=== PATIENT | male | born 1955 | race Asian ===

== ENCOUNTER 2023-10-08 12:36 | Observation (INO) ==
--- NOTE | 2023-10-08 13:09 | Emergency Department Note ---
Impression & Plan Microcytic anemia, FORRESTER (dyspnea on exertion) ED Provider Note Provider: Bryan Bailey MD DATE OF SERVICE: 10/08/2023 CHIEF COMPLAINT: Referred anemia HISTORY OF PRESENT ILLNESS: Patient is a 68-year-old gentleman referred here today by his PCP due to anemia. Hemoglobin reported to be 6.6. Patient reports over the past 6 months been having increased fatigue and shortness of breath. No bleeding or black or bloody stools reported. Denies any significant trauma or nosebleeds. Denies significant chest pain. Not on anticoagulants. Denies GI upset or heartburn. Last weeks at least no noted some increased dyspnea on exertion but no chest pain. Denies any recent bleeding but does report in the past has had a little bit of blood in the stool in the past. Did previously receive iron infusions a year or 2 ago. Had previous GI workup in the last several years including EGD and colonoscopy without findings. 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 NECK: Trachea midline. ENT: Mucous membranes pink and moist. LUNGS: Airway patent. No retractions or tachypnea. HEART: Regular rate and rhythm. No chest wall tenderness ABDOMEN: Soft and non-tender, without guarding or rebound. SKIN: Acyanotic, warm, dry, without rashes EXTREMITIES: Without swelling, tenderness or deformity NEUROLOGICAL: No focal deficits. No aphasia. No facial droop or slurred speech. Ambulatory. EK beats. Normal sinus rhythm. No PVC or PAC. No acute ST segment elevation or depression QTc 435. CONTINUOUS CARDIAC MONITORING: was ordered and showed a heart rate of 70s-80s bpm in normal sinus Patient's laboratory studies and imaging reviewed. Differential includes Infection, dehydration, metabolic abnormality, hypo/hyperglycemia, electrolyte disturbance, anemia, hypoxia, cardiac sources, intracerebral event, toxicologic, neurologic, as well as other pathologies. IMPRESSION/MEDICAL DECISION MAKING: Patient referred due to reportedly hemoglobin 6.6 in outpatient setting. This was double checked here. Type and screen sent. EKG obtained and troponin sent. Seems a bit more chronic. Dyspnea on exertion but no dyspnea at rest. Not hypoxic. Thyroid testing was sent. Iron panel and B12 sent. Hemoglobin confirmed to be low. Mild leukopenia noted. Normal platelet count. No significant BUN elevation and normal creatinine electrolytes and doubt significant upper GI bleed. Denies any lower GI bleeding at this time. Seemingly more chronic. Transferrin quite low. Vitamin B12 is also low although anemia appears microcytic. A unit of packed red blood cells was ordered and he was consented at bedside. Do not feel any additional imaging at this time. Chest x-ray is reassuring on my review.. Discussion with him he is agreeable to stay overnight for further observation. Discussed with the hospitalist team. DIAGNOSIS: Microcytic anemia, iron deficiency, dyspnea on exertion DISPOSITION: Hospitalist will evaluate Patient was agreeable with this plan. Critical Care I have personally spent 31 minutes of critical care time in the direct management of this patient. This includes bedside care, interpretation of diagnostic studies, and testing, discussion with consultants, patient, and family members, and other required patient management activities. These 31 minutes is in excess of all separately billable procedures. Past Med/Surg History Medical History (Updated 10/08/23 @ 15:30 by Rakesh Woodall MD) Essential (primary) hypertension Social History Smoking Status: Never smoker Second Hand Exposure: Yes (father smoked); Hx Alcohol Use: Yes (occ'l beer) Alcohol type: beer Hx Substance Use: No Preferred Language: Romanian Communication Ability: Effective Visual Impairment: No Limitations Hearing Ability: Normal Slitter Operator Required: No Beliefs That Will Affect Care: None marital status: Current Living Situation: Spouse current occupational status: retired Feels Safe at Home: Yes Childhood Exposure to Second-Hand Smoke: Yes Diet: regular Dental Care, Regularly: Yes Physical Activity Frequency: Daily Seatbelt Use: always Sunscreen Use: Yes Do you think of yourself as: straight/heterosexual Gender Identity: Male Assistive Devices: None Allergies Allergies Allergy/AdvReac Type Severity Reaction Status Date / Time No Known Allergies Allergy Verified 10/08/23 15:25 Home Meds Home Medications Medication Instructions Recorded Confirmed No Known Home Medications 10/08/23 10/08/23 Results & Data (ED) Vital Signs Vital Signs - 24 hr 10/08/23 12:45 10/08/23 14:22 10/08/23 14:38 Temperature 36.7 C Temperature Source Skin Pulse Rate 90 79 Pulse Rate [Apical] 72 Respiratory Rate 18 20 Blood Pressure 123/71 Blood Pressure [Left Arm] 151/82 H Blood Pressure Mean 88 Blood Pressure Mean [Left Arm] 105 Pulse Oximetry 100 99 Oxygen Delivery Method Room Air Room Air Sepsis Recent Fever Within 48 Hours No Sepsis New/Unexplained Change in Mental Status No Sepsis Action Taken by Nursing No Action Required 10/08/23 15:00 Temperature Temperature Source Pulse Rate 73 Pulse Rate [Apical] Respiratory Rate 16 Blood Pressure 149/80 H Blood Pressure [Left Arm] Blood Pressure Mean 103 Blood Pressure Mean [Left Arm] Pulse Oximetry 98 Oxygen Delivery Method Room Air Sepsis Recent Fever Within 48 Hours Sepsis New/Unexplained Change in Mental Status Sepsis Action Taken by Nursing Laboratory Data 10/08/23 12:57 10/08/23 12:57 Lab Results 10/08/23 10/08/23 10/08/23 Range/Units 12:55 12:57 13:08 WBC 3.39 L (4.8-10.8) K/ul RBC 3.83 L (4.70-6.10) M/uL Hgb 6.7 L* (14.0-18.0) g/dl POC Hgb 8.5 L (14.0-18.0) g/dl Hct 25.2 L (42.0-52.0) % POC Hct 25 L (42-52) % MCV 65.8 L (80.0-100.0) fL MCH 17.5 L (25.0-34.0) pg MCHC 26.6 L (32.0-36.0) g/dL RDW Std Deviation 45.8 (36.4-46.3) fL RDW Coeff of Hunter 19.8 H (11.5-14.5) % Plt Count 235 (130-400) K/uL MPV 10.6 (9.4-12.4) fL Immature Gran % (Auto) 0.0 % Neut % (Auto) 68.1 % Lymph % (Auto) 20.1 % Tucker % (Auto) 8.0 % Eos % (Auto) 2.9 % Baso % (Auto) 0.9 % Neut # (Auto) 2.31 (1.40-6.50) K/uL Lymph # (Auto) 0.68 L (1.20-3.40) K/uL Tucker # (Auto) 0.27 (0.11-0.59) K/uL Eos # (Auto) 0.10 (0.00-0.50) K/uL Baso # (Auto) 0.03 (0.00-0.20) K/uL Immature Gran # (Auto) 0.00 L (0.01-0.20) K/uL Polychromasia 1+ Hypochromasia Present Anisocytosis Present Microcytosis Present Tear Drop Cells 1+ Ovalocytes 1+ PT 11.4 (9.0-12.0) Seconds INR 1.0 (0.9-1.1) APTT 30 (21-31) Seconds PTT Ratio 1.1 POC Sodium 140 (135-144) mmol/L Sodium 138 (136-145) mmol/L POC Potassium 4.2 (3.3-5.0) mmol/L Potassium 4.2 (3.5-5.1) mmol/L POC Chloride 104 (101-112) mmol/L Chloride 106 (98-107) mmol/L Carbon Dioxide 26 (21-32) mmol/L POC Total CO2 24 (24-31) mmol/L Anion Gap 6 (3-11) POC Anion Gap 17.0 (16-25) mmol/L POC BUN 20 H (7-18) mg/dl BUN 22 (6-23) mg/dl Creatinine 0.59 L (0.6-1.4) mg/dl POC Creatinine 0.6 (0.6-1.3) mg/dl Est Cr Clr Drug Dosing 98.5 ml/min Est GFR ( Amer) 120.6 ml/min Est GFR (Non-Af Amer) 104.0 ml/min BUN/Creatinine Ratio 37.3 H (10-20) Glucose 125 H (70-99(Fasting)) mg/dl POC Glucose (other) 124 H (70-99) mg/dl Calcium 9.4 (8.6-10.3) mg/dl POC Ioniz Calcium Mino 1.26 (1.12-1.32) mmol/l Iron 13 L (35-175) mcg/dl TIBC 459 H (250-450) mcg/dl Unsaturated IBC 446 H (155-355) mcg/dl Transferrin % Sat 3 L (20-50) % Ferritin Cancelled Total Bilirubin 0.5 (0.2-1.0) mg/dl AST 13 (13-39) U/L ALT 11 (7-52) U/L Alkaline Phosphatase 91 (34-104) U/L Troponin I High Sens < 2.3 (0-20) pg/ml Total Protein 7.4 (6.0-8.3) gm/dl Albumin 4.5 (3.4-5.0) gm/dl Globulin 2.9 (2.5-4.0) gm/dl Albumin/Globulin Ratio 1.6 (0.9-2) Vitamin B12 < 50 L (180-914) pg/ml TSH 1.520 (0.300-4.500) uIu/ml Blood Type O Positive Blood Type Recheck Antibody Screen NEGATIVE 10/08/23 Range/Units 14:24 WBC (4.8-10.8) K/ul RBC (4.70-6.10) M/uL Hgb (14.0-18.0) g/dl POC Hgb (14.0-18.0) g/dl Hct (42.0-52.0) % POC Hct (42-52) % MCV (80.0-100.0) fL MCH (25.0-34.0) pg MCHC (32.0-36.0) g/dL RDW Std Deviation (36.4-46.3) fL RDW Coeff of Hunter (11.5-14.5) % Plt Count (130-400) K/uL MPV (9.4-12.4) fL Immature Gran % (Auto) % Neut % (Auto) % Lymph % (Auto) % Tucker % (Auto) % Eos % (Auto) % Baso % (Auto) % Neut # (Auto) (1.40-6.50) K/uL Lymph # (Auto) (1.20-3.40) K/uL Tucker # (Auto) (0.11-0.59) K/uL Eos # (Auto) (0.00-0.50) K/uL Baso # (Auto) (0.00-0.20) K/uL Immature Gran # (Auto) (0.01-0.20) K/uL Polychromasia Hypochromasia Anisocytosis Microcytosis Tear Drop Cells Ovalocytes PT (9.0-12.0) Seconds INR (0.9-1.1) APTT (21-31) Seconds PTT Ratio POC Sodium (135-144) mmol/L Sodium (136-145) mmol/L POC Potassium (3.3-5.0) mmol/L Potassium (3.5-5.1) mmol/L POC Chloride (101-112) mmol/L Chloride (98-107) mmol/L Carbon Dioxide (21-32) mmol/L POC Total CO2 (24-31) mmol/L Anion Gap (3-11) POC Anion Gap (16-25) mmol/L POC BUN (7-18) mg/dl BUN (6-23) mg/dl Creatinine (0.6-1.4) mg/dl POC Creatinine (0.6-1.3) mg/dl Est Cr Clr Drug Dosing ml/min Est GFR ( Amer) ml/min Est GFR (Non-Af Amer) ml/min BUN/Creatinine Ratio (10-20) Glucose (70-99(Fasting)) mg/dl POC Glucose (other) (70-99) mg/dl Calcium (8.6-10.3) mg/dl POC Ioniz Calcium Mino (1.12-1.32) mmol/l Iron (35-175) mcg/dl TIBC (250-450) mcg/dl Unsaturated IBC (155-355) mcg/dl Transferrin % Sat (20-50) % Ferritin Total Bilirubin (0.2-1.0) mg/dl AST (13-39) U/L ALT (7-52) U/L Alkaline Phosphatase (34-104) U/L Troponin I High Sens (0-20) pg/ml Total Protein (6.0-8.3) gm/dl Albumin (3.4-5.0) gm/dl Globulin (2.5-4.0) gm/dl Albumin/Globulin Ratio (0.9-2) Vitamin B12 (180-914) pg/ml TSH (0.300-4.500) uIu/ml Blood Type Blood Type Recheck O Positive Antibody Screen Imaging Data Radiologist's Impression: Chest X-Ray 10/08/23 13:34 XR chest 1V not portable CLINICAL HISTORY: sob, anemia TECHNIQUE: Single frontal radiograph of the chest was obtained. Comparison: Comparison is made to chest radiograph 10/07/2023 FINDINGS: No lines and tubes are seen. The cardiomediastinal silhouette is normal. The lungs are clear. A few calcified granulomata are seen. No evidence of pleural effusion or pneumothorax. IMPRESSION: No acute abnormalities and in particular no radiographic evidence of pneumonia. ACT 112: Negative or not required by law. Electronically signed by: Amor Choudhary M.D. 10/08/2023 2:18 PM Discharge Plan Visit Data Chief Complaint: Referred by Doctor Stated Complaint: REF BY DR HOLMAN ED Provider: Bryan Bailey Discharge Problem: Microcytic anemia, FORRESTER (dyspnea on exertion) Patient Disposition: Being Evaluated by Hospitalist Forms Stand Alone Forms: My Payment plugin Prescriptions Prescriptions: No Action No Known Home Medications Referrals Referrals: PCP,NO [Physician] -
[2023-10-08 13:22] LABS: Mean Corpuscular Hemoglobin 17.5 pg (25.0-34.0); Mean Corpuscular Hgb Conc 26.6 g/dL (32.0-36.0); Mean Corpuscular Volume 65.8 fL (80.0-100.0); Mean Platelet Volume 10.6 fL (9.4-12.4); Platelet Count 235 K/uL (130-400); RDW Coefficient of Variation 19.8 % (11.5-14.5); RDW Standard Deviation 45.8 fL (36.4-46.3); Red Blood Count 3.83 M/uL (4.70-6.10); White Blood Count 3.39 K/ul (4.8-10.8)
[2023-10-08 13:22] LABS: iSTAT Creatinine 0.6 mg/dl (0.6-1.3); iSTAT Hemoglobin 8.5 g/dl (14.0-18.0); iSTAT Ionized Calcium 1.26 mmol/l (1.12-1.32); iSTAT Potassium 4.2 mmol/L (3.3-5.0)
[2023-10-08 13:26] LABS: Albumin Level 4.5 gm/dl (3.4-5.0); Anion Gap 6 (3-11); Bilirubin,Total 0.5 mg/dl (0.2-1.0); Calcium 9.4 mg/dl (8.6-10.3); Carbon Dioxide 26 mmol/L (21-32); Chloride 106 mmol/L (98-107); Potassium 4.2 mmol/L (3.5-5.1); Sodium 138 mmol/L (136-145)
[2023-10-08 13:30] LABS: Partial Thromboplastin Ratio 1.1; Partial Thromboplastin Time 30 Seconds (21-31); Prothrombin Time 11.4 Seconds (9.0-12.0)
[2023-10-08 13:32] LABS: Alanine Aminotransferase 11 U/L (7-52); Albumin Globulin Ratio 1.6 (0.9-2); Alkaline Phosphatase 91 U/L (34-104); Aspartate Aminotransferase 13 U/L (13-39); BUN Creatinine Ratio 37.3 (10-20); Blood Urea Nitrogen 22 mg/dl (6-23); Creatinine Clr Calc Pharmacy 98.5 ml/min; Est GFR (African American) 120.6 ml/min; Globulin 2.9 gm/dl (2.5-4.0); Glucose 125 mg/dl (70-99(Fasting)); Hematocrit (blood only) 25.2 % (42.0-52.0); Hemoglobin 6.7 g/dl (14.0-18.0); Total Protein 7.4 gm/dl (6.0-8.3)
[2023-10-08 13:39] LABS: Anisocytosis Present; Basophils # (auto) 0.03 K/uL (0.00-0.20); Basophils % (auto) 0.9 %; Eosinophils % (auto) 2.9 %; Hypochromasia Present; Lymphocytes # (auto) 0.68 K/uL (1.20-3.40); Lymphocytes % (auto) 20.1 %; Microcytosis Present; Monocytes # (auto) 0.27 K/uL (0.11-0.59); Neutrophils # (auto) 2.31 K/uL (1.40-6.50); Neutrophils % (auto) 68.1 %; Ovalocytes 1+; Polychromasia 1+; Tear Drop Cells 1+
[2023-10-08 13:51] LABS: Iron 13 mcg/dl (35-175); Total Iron Binding Cap Calc 459 mcg/dl (250-450); Transferrin (FE) Percent Satur 3 % (20-50); Unsaturated Iron Binding Cap 446 mcg/dl (155-355)
[2023-10-08 13:56] LABS: Troponin I High Sensitivity < 2.3 pg/ml (0-20)
--- NOTE | 2023-10-08 14:20 | XRay Report ---
XR chest 1V not portable CLINICAL HISTORY: sob, anemia TECHNIQUE: Single frontal radiograph of the chest was obtained. Comparison: Comparison is made to chest radiograph 10/07/2023 FINDINGS: No lines and tubes are seen. The cardiomediastinal silhouette is normal. The lungs are clear. A few c alcified granulomata are seen. No evidence of pleural effusion or pneumothorax. IMPRESSION: No acute abnormalities and in particular no radiographic evidence of pneumonia. ACT 112: Negative or not required by law. Electronically signed by: Amor Choudhary M.D. 10/08/2023 2:18 PM
[2023-10-08] MEDS ORDERED: SODIUM CHLORIDE 0.9% 250 ML IV PRN ×3 (14:43→18:03)
--- NOTE | 2023-10-08 14:59 | History & Physical Report ---
Date of Service October 08, 2023 Assessment & Plan (1) Microcytic anemia: Plan: Chronic iron deficiency anemia, B12 deficiency Hemoglobin 6.4 on admission, with exertional dyspnea and without chest pain or evidence of endorgan ischemia at time of admission. He has had intermittent 3/10 exertional chest pain twice in the past year with the last episode 1 month ago resolved quickly with rest Patient is minimally symptomatic, and asymptomatic at rest with no tac hycardia. Suggestive of chronicity without acute large-volume bleed. He has no epigastric pain and BUN is normal, do not suspect upper GI bleed Does not take oral iron, has had iron infusions in the past - Colonoscopy with hx of hemorrhoids, pt reports has had an egd with no ulcers Type and cross, transfuse 1 unit and recheck H&H then trend Iron levels on admission indicate severe iron deficiency with iron of 13, transferrin saturation of 3%, UIBC of 446. Ferritin is pending. as long as no additional blood transfusions are required overnight, start Venofer therapy 10/09. 300 mg daily x 3 days Patient is also with depleted B12, undetectable by assay. Will treat with 1000 mcg IM once daily for 1 week, then continue 1000 mcg weekly for 8 weeks, and then monthly thereafter. He reports that he has a broad diet and eats well without restriction, gets a mix of meats/rice/breads/vegetables overall. Given good diet overall but completely undetectable B12 levels and only history of oral supplementation, will add anti-intrinsic factor send out to evaluate for pernicious anemia. If positive he will need ongoing IM supplementation or may trial supratherapeutic p.o. doses. Folate level pending, continue daily supplementation (2) Essential (primary) hypertension: Plan: Hypertension Patient has not filled his antihypertensives in some time, reports his blood pressure is usually adequately controlled at home. BP is mildly elevated 149/80 with no stroke symptoms and no history of kidney disease, heart disease, or CVA. Will defer antihypertensive initiation at time of admission; if blood pressure does continue to rise may restart amlodipine 5 mg daily (3) FORRESTER (dyspnea on exertion): Plan: Due to anemia. No ongoing chest pain, troponin is normal, no signs of ACS. CXR is clear, do not suspect infectious etiology (4) Hematochezia: Plan: hx of chronic small-volume hematochezia with hemorrhoids and rectal stenosis no known colorectal cancer and no history of GERD/ulcers. BUN is not elevated and no epigastric tenderness is present, do not suspect upper GI bleed - Patient has seen [facility] last visit was March 2023. Noted to have hemorrhoids, poor prep. Patient was reprepped and this was attempted to be repeated however again with poor visualization. Patient was frustrated by double hospital bills and had not yet followed up for a 1 year repeat. Reviewed with patient, he is agreeable to having a potentially extended prep and rescope as outpatient, can follow-up with [facility] [place] [facility] as outpatient. He reports all GI bleeding has been very small amounts, always bright red, and never melanic or dark red and never in a large volume. While in AVM has not been excluded and patient declined capsule endoscopy as outpatient, low suspicion for this based on clinical presentation (5) B12 deficiency: Plan DVT prophylaxis: SCDs, pharmacal prophylaxis deferred due to hematochezia CODE STATUS: Full code Diet: Regular Disposition: Medical/telemetry for acute anemia pending stability, may downgrade to medical surgical if hemoglobin appropriately rises and hemodynamics remain normal History of Present Illness Primary Care Provider: Emma Lofton Mr. Medel presents with progressive exercise intolerance and fatigue requiring him to take frequent rests when shoveling snow and he was referred for low hemoglobin levels as an outpatient. He reports that he has had progressive fatigue and needs to take more breaks in the last month when she will flinch now and exercising. He reports that shortness of breath resolves with rest, but the episodes are becoming more frequent with less exertion. Initially denies chest pain, then reports he did have a feeling of chest tightness with exertion 1 or 2 times but that would not call this pain and resolved quickly with rest. No chest pain or chest pressure at rest and not on admission. Reports he does have a history of anemia. Was on B12 supplements in the past. Was on treatment 1 year ago with IV iron and B12. Did not take oral iron. Took PO b12 only. Is not sure if his levels ever improved. Has noted recieved B12 IM before. Diet: 'I eat everything. Dont restrict anything. Eats meat, rice, bread.' No FHx of colorectal rectal. Had a colonoscopy last year for hemorrhoids, was noted to have hemorrhoids and anal stenosis. Reports he is pending a followup colonoscopy in 1-3 years, then every 3-5 years after. Denies polyps. No melena. Had an upper endoscopy which was reporedly normal. Was offered a pill endoscopy, but never had much help with bleeding and didn't feel anythign was helping so declined this at the time. No history of melena. NO other medical problems No heart disease No diabetes Retired, does a lot of physical work and tolerates well just needs very frequent breaks and rest in the last few weeks which was worse shoveling snow this month. Reports his blood pressure is adequately controlled, is not taking any home medications or antihypertensives at this Medical History: Reviewed Medications: Reviewed Surgical History: Reviewed Family history: Reviewed Allergies: Reviewed Social History: No tobacco, rare social ETOH Code Status: Full code Allergies Allergy/AdvReac Type Severity Reaction Status Date / Time No Known Allergies Allergy Verified 10/08/23 15:25 Home Medications Medication Instructions Recorded Confirmed Type No Known Home Medications 10/08/23 10/08/23 History Past Med/Surg History Medical History (Updated 10/08/23 @ 15:41 by Rakesh Woodall MD) B12 deficiency Microcytic anemia Essential (primary) hypertension Social History Smoking Status: Never smoker Second Hand Exposure: Yes (father smoked); Hx Alcohol Use: Yes (occ'l beer) Alcohol type: beer Hx Substance Use: No Preferred Language: Hebrew Communication Ability: Effective Visual Impairment: No Limitations Hearing Ability: Normal Retirement Consultant Required: No Beliefs That Will Affect Care: None marital status: Current Living Situation: Spouse current occupational status: retired Feels Safe at Home: Yes Childhood Exposure to Second-Hand Smoke: Yes Diet: regular Dental Care, Regularly: Yes Physical Activity Frequency: Daily Seatbelt Use: always Sunscreen Use: Yes Do you think of yourself as: straight/heterosexual Gender Identity: Male Assistive Devices: None Physical Exam Physical Exam: General: A&Ox3. NAD. Cooperative. HEENT: Atraumatic, normocephalic. Vision/hearing intact. Slight pallor Pulm: CTAB A&P. -wheezes, -rales, -rhonchi. Symmetrical chest rise. No increased work of breathing. No respiratory distress. Cardiac: RRR, -mrg. Radial pulses intact and symmetrical. Abdominal: Nontender, nondistended, soft. BS present. Results & Data Results & Data Vital Signs (Past 12 Hours) Vital Signs Temp Pulse Pulse Resp BP BP Pulse Ox 10/08/23 14:38 79 10/08/23 14:22 72 20 151/82 H 99 10/08/23 12:45 36.7 C 90 18 123/71 100 O2 Del Method 10/08/23 14:38 10/08/23 14:22 Room Air 10/08/23 12:45 Room Air PG Care Time/CCT Total # of Minutes Spent Total Time Spent with Patient: Total time spent is greater than 50% in coordination of care (as documented) at patient's floor/unit and/or counseling patient: Coding Level of Care Code 66328 INT INP/OBS CARE 3/75MIN Diagnoses Microcytic anemia D50.9 Essential (primary) hypertension I10 FORRESTER (dyspnea on exertion) R06.09 Hematochezia K92.1 B12 deficiency E53.8
[2023-10-08] MEDS ORDERED: ACETAMINOPHEN 325 MG TAB PO PRN (17:23)
[2023-10-09 00:20] LABS: Hemoglobin 6.6 g/dl (14.0-18.0)
[2023-10-09] MEDS ORDERED: SODIUM CHLORIDE 0.9% 250 ML IV PRN (00:52)
--- NOTE | 2023-10-09 00:53 | Communication Note ---
Date of Service: October 09, 2023 Pt's H&H 1 hr post 1 unit transfusion was 6.6. Pt remained relatively asymptomatic. VS stable. No signs of bleeding. 1 unit pRBCs ordered d/t Hgb <7.
--- NOTE | 2023-10-09 07:21 | Hospitalist Progress Note ---
Date of Service October 09, 2023 Assessment & Plan (1) Microcytic anemia: Plan: Chronic iron deficiency anemia, B12 deficiency Patient is symptomatic, with FORRESTER. Suggestion of chronicity. No signs of blood loss or hemolysis - Colonoscopy with hx of hemorrhoids, pt reports has had an egd with no ulcers Type and cross, transfuse 1 unit Iron levels on admission indicate severe iron deficiency with iron of 13, transferrin saturation of 3%, UIBC of 446. Ferritin is pending. as long as no additional blood transfusions are required overnight, start Venofer therapy 10/09. 300 mg daily x 3 days Patient is also with depleted B12, undetectable by assay. Will treat with 1000 mcg IM once daily for 1 week, then continue 1000 mcg weekly for 8 weeks, and then monthly thereafter. He reports that he has a broad diet and eats well without restriction, gets a mix of meats/rice/breads/vegetables overall. Given good diet overall but completely undetectable B12 levels and only history of oral supplementation, will add anti-intrinsic factor send out to evaluate for pernicious anemia. If positive he will need ongoing IM supplementation or may trial supratherapeutic p.o. doses. Folate level pending, continue daily supplementation (2) Essential (primary) hypertension: Plan: Hypertension Chronic and stable does not take prescribed amlodipine (3) Hematochezia: Plan: hx of chronic small-volume hematochezia with hemorrhoids and rectal stenosis. - Patient has seen [facility] last visit was March 2023. Noted to have hemorrhoids, poor prep. Patient was reprepped and this was attempted to be repeated however again with poor visualization. Patient was frustrated by double hospital bills and had not yet followed up for a 1 year repeat. Reviewed with patient, he is agreeable to having a potentially extended prep and rescope as outpatient, can follow-up with [facility] [place] as outpatient. He reports all GI bleeding has been very small amounts, always bright red, and never melanic or dark red and never in a large volume. While in AVM has not been excluded and patient declined capsule endoscopy as outpatient, low suspicion for this based on clinical presentation Plan DVT prophylaxis: SCDs, pharmacal prophylaxis deferred due to hematochezia CODE STATUS: Full code Admission and Anticipated Discharge Date Admission Date: October 08, 2023 Results & Data Results & Data Vital Signs (Past 12 Hours) Vital Signs Temp Pulse Pulse Resp BP BP Pulse Ox 10/09/23 04:35 98.4 F 65 16 117/72 98 10/09/23 04:05 98.1 F 82 20 139/79 99 10/09/23 03:37 98.4 F 71 16 119/72 98 10/09/23 02:37 98.2 F 69 16 117/71 97 10/09/23 02:07 98.6 F 75 16 123/72 97 10/09/23 01:52 98.1 F 73 16 123/68 98 10/09/23 01:28 71 10/08/23 22:57 98.1 F 79 20 108/61 97 10/08/23 21:57 73 10/08/23 21:43 97.7 F 72 16 145/81 H 99 10/08/23 21:10 97.9 F 69 16 143/77 H 96 10/08/23 20:20 97.9 F 75 16 143/77 H 98 10/08/23 20:00 16 145/81 H 99 10/08/23 19:22 98.2 F 77 16 141/72 H 100 O2 Del Method 10/09/23 04:35 10/09/23 04:05 Room Air 10/09/23 03:37 10/09/23 02:37 10/09/23 02:07 10/09/23 01:52 10/09/23 01:28 10/08/23 22:57 Room Air 10/08/23 21:57 10/08/23 21:43 Room Air 10/08/23 21:10 10/08/23 20:20 10/08/23 20:00 10/08/23 19:22 PG Care Time/CCT Total # of Minutes Spent Total Time Spent with Patient: Total time spent is greater than 50% in coordination of care (as documented) at patient's floor/unit and/or counseling patient: Coding Diagnoses Microcytic anemia D50.9 Essential (primary) hypertension I10 Hematochezia K92.1
[2023-10-09 08:17] LABS: Albumin Level 4.1 gm/dl (3.4-5.0); Bilirubin,Total 0.9 mg/dl (0.2-1.0); Calcium 9.1 mg/dl (8.6-10.3); Potassium 3.7 mmol/L (3.5-5.1)
[2023-10-09 08:23] LABS: Albumin Globulin Ratio 1.7 (0.9-2); BUN Creatinine Ratio 36.5 (10-20); Creatinine Clr Calc Pharmacy 131.5 ml/min; Est GFR (Non-African American) 109.6 ml/min; Globulin 2.4 gm/dl (2.5-4.0); Total Protein 6.5 gm/dl (6.0-8.3)
[2023-10-09 08:49] LABS: Hematocrit (blood only) 27.6 % (42.0-52.0); Hemoglobin 7.8 g/dl (14.0-18.0); Mean Corpuscular Hemoglobin 19.4 pg (25.0-34.0); Mean Corpuscular Hgb Conc 28.3 g/dL (32.0-36.0); Mean Corpuscular Volume 68.5 fL (80.0-100.0); Mean Platelet Volume 10.6 fL (9.4-12.4); Platelet Count 229 K/uL (130-400); RDW Coefficient of Variation 22.7 % (11.5-14.5); RDW Standard Deviation 55.4 fL (36.4-46.3); Red Blood Count 4.03 M/uL (4.70-6.10); White Blood Count 2.94 K/ul (4.8-10.8)
[2023-10-09 08:51] LABS: ALC (manual) 0.44 K/uL (1.2-3.4); ANC (manual) 2.32 K/uL (1.4-6.5); Anisocytosis Present; Eosinophils # (manual) 0.09 K/uL (0-0.50); Eosinophils % (manual) 3 %; Hypochromasia Present; Lymphocytes # (manual) 0.44 K/uL (1.2-3.4); Lymphocytes % (manual) 15 %; Microcytosis Present; Monocytes # (manual) 0.09 K/uL (0.11-0.59); Monocytes % (manual) 3 %; Neutrophils # (manual) 2.32 K/uL (1.40-6.50); Neutrophils % (manual) 79 %; Ovalocytes 1+; Platelet Estimate Normal (Normal)
[2023-10-09] MEDS ORDERED: CYANOCOBALAMIN 1000 MCG/ML VIAL IM ONE (09:32)
--- NOTE | 2023-10-09 11:11 | Electrocardiogram Report ---
Test Reason : Blood Pressure : / mmHG Vent. Rate : 078 BPM Atrial Rate : 078 BPM P-R Int : 182 ms QRS Dur : 088 ms QT Int : 382 ms P-R-T Axes : 066 071 077 degrees QTc Int : 435 ms Normal sinus rhythm Normal ECG When compared with ECG of 03-JAN-2007 15:22, No significant change was found Confirmed by Jules Ivan ([id number]) on 10/09/2023 11:11:08 AM Referred By: Emma Lofton Confirmed By:Jose Ivan
--- NOTE | 2023-10-09 19:31 | Discharge Summary ---
Date of Service October 09, 2023 Admission HPI Per Admitting Provider Mr. Medel presents with progressive exercise intolerance and fatigue requiring him to take frequent rests when shoveling snow and he was referred for low hemoglobin levels as an outpatient. He reports that he has had progressive fatigue and needs to take more breaks in the last month when she will flinch now and exercising. He reports that shortness of breath resolves with rest, but the episodes are becoming more frequent with less exertion. Initially denies chest pain, then reports he did have a feeling of chest tightness with exertion 1 or 2 times but that would not call this pain and resolved quickly with rest. No chest pain or chest pressure at rest and not on admission. Reports he does have a history of anemia. Was on B12 supplements in the past. Was on treatment 1 year ago with IV iron and B12. Did not take oral iron. Took PO b12 only. Is not sure if his levels ever improved. Has noted recieved B12 IM before. Diet: 'I eat everything. Dont restrict anything. Eats meat, rice, bread.' No FHx of colorectal rectal. Had a colonoscopy last year for hemorrhoids, was noted to have hemorrhoids and anal stenosis. Reports he is pending a followup colonoscopy in 1-3 years, then every 3-5 years after. Denies polyps. No melena. Had an upper endoscopy which was reporedly normal. Was offered a pill endoscopy, but never had much help with bleeding and didn't feel anythign was helping so declined this at the time. No history of melena. NO other medical problems No heart disease No diabetes Retired, does a lot of physical work and tolerates well just needs very frequent breaks and rest in the last few weeks which was worse shoveling snow this month. Reports his blood pressure is adequately controlled, is not taking any home medications or antihypertensives at this Medical History: Reviewed Medications: Reviewed Surgical History: Reviewed Family history: Reviewed Allergies: Reviewed Social History: No tobacco, rare social ETOH Code Status: Full code Principal Diagnosis iron deficiency anemia b12 deficiency hematochezia Discharge Exam cardiac is regular lungs are clear rectal exam is without significant visible hemorrhoids and no blood on digital exam and no significant internal hemorrhoids felt Discharge Data Allergies Allergy/AdvReac Type Severity Reaction Status Date / Time No Known Allergies Allergy Verified 10/08/23 15:25 Consultations 10/08/23 14:53 ED Decision to Admit Stat Hospital Course (1) Microcytic anemia: Chronic iron deficiency anemia, B12 deficiency Patient is symptomatic, with FORRESTER. Suggestion of chronicity. No signs of blood loss or hemolysis - Colonoscopy with hx of hemorrhoids, pt reports has had an egd with no ulcers transfused 2 unit Iron levels on admission indicate severe iron deficiency with iron of 13, transferrin saturation of 3%, UIBC of 446. pt revieved 2 u prbc, will have 2 does of venofer 300mg one each day in medical treatment unit 10/10 and 10/11, dc with iv line for this purpose, Patient is also with depleted B12, undetectable by assay. Will treat with 1000 mcg IM will add anti-intrinsic factor send out to evaluate for pernicious anemia. will follow up with Dr Lofton for continued B12 supplementation continue stool softeners to help relieve constipation and lessen hemorrhoidal bleed I personally spoke to Dr Michaels to arrange outpt GI medicine follow up (2) Essential (primary) hypertension: Hypertension Chronic and stable does not take prescribed amlodipine (3) Hematochezia: hx of chronic small-volume hematochezia with hemorrhoids and rectal stenosis. - Patient has seen [facility] last visit was March 2023. Noted to have hemorrhoids, poor prep. Patient was reprepped and this was attempted to be repeated however again with poor visualization. Patient was frustrated by double hospital bills and had not yet followed up for a 1 year repeat. Reviewed with patient, he is agreeable to having a potentially extended prep and rescope as outpatient, can follow-up with [facility] as outpatient. He reports all GI bleeding has been very small amounts, always bright red, and never melanic or dark red and never in a large volume. While in AVM has not been excluded and patient declined capsule endoscopy as outpatient, low suspicion for this based on clinical presentation rectal exam without confirmed hemorroids Plan CODE STATUS: Full code Total Time Total Time Spent Total Time Spent (In Minutes): It required greater than 30 minutes to prepare this patient for discharge. Discharge Plan Discharge Items Patient Disposition: Home - Self-Care Reason For Visit: CHRONIC ANEMIA, HGB <7 Discharge Diagnosis: iron deficiency anemia vitamin B 12 deficiency Activity: Per Instructions section Non-emergency contact: Primary Care Provider and Heart Coordinator Call non-emergency contact if: your symptoms worsen Follow-up/Referrals: Brent Michaels MD [Physician] - Emma Lofton [Primary Care Provider] - Diet: Regular Addtl Attending Provider Instructions: please continue to eat healthy food and assure your stool remains soft with metamucil or generic and good hydration please follow up with Dr Lofton to coordinate any additional B12 injections you may need and to follow up with your lab tests sent to outside lab Dr Michaels will contact you for you Gastroenterology appointment Addtl Warp Tying Machine Tender Provider Instructions: Please follow up with the medical treatment unit for further iron infusions Pending Studies at Discharge: Yes Stand-Alone Forms: My [facility], Smoking Cessation Medications and DC Order Prescriptions: No Action No Known Home Medications Discharge Orders: Discharge Order (Routine); Ordered 10/09/23 Ordered By: Tyler Florian Admission Data Admit Date/Time: 10/08/23 15:26 Attending Provider: Tyler Florian Admit Provider: Rakesh Woodall Primary Care Provider: Emma Lofton Other Providers: Rakesh Woodall Other Interventions: Discharge Summary Assessment (RN) Last Done: 10/09/23 14:41 Coding Level of Care Code 65005 INP/OBS DISCH >30 MIN Diagnoses Microcytic anemia D50.9 Essential (primary) hypertension I10 Hematochezia K92.1
== END 2023-10-09 16:40 | disposition home or self-care (01) | DRG 812 ==
LOC: ED 12:36 → EDINP 15:26 → SUATTDRO 15:26 → INTOOBSV 15:26 → EDINP 17:24 → 2S 20:09